=== PATIENT | female | born 1940 | race Caucasian/White ===

== ENCOUNTER → 2021-10-05 | Outpatient (CLI) | payer OTHER ==
[2021-10-05 11:04] LABS: HEMOGLOBIN 12.6 gm/dl (12.3-15.3); RED BLOOD COUNT 3.99 M/UL (4.00-5.10); WHITE BLOOD COUNT 11.5 K/UL (4.5-11.0)
[2021-10-06 07:10] LABS: CALCIUM, SERUM 9.8 mg/dL (8.7-10.3); CREATININE, SERUM 1.01 mg/dL (0.57-1.00); POTASSIUM, SERUM 4.8 mmol/L (3.5-5.2)
== END ==
LOC: LAB 10:01
PROVIDERS: Internal Medicine Cardiovascular Disease
DX: I25.10 Atherosclerotic heart disease of native coronary artery without angina pectoris (principal); R55 Syncope and collapse; I47.2 Ventricular tachycardia; R91.8 Other nonspecific abnormal finding of lung field
CPT/HCPCS: 36415; 71046; 80048; 85025

== ENCOUNTER → 2021-10-07 | Outpatient (CLI) | payer OTHER ==
[~2021-10-07] MED LIST: COZAAR50 MG PO; FISH OIL 1,0001 EACH PO; FOSINOPRIL SODI20 MG PO; HYDROCHLOROTHIA25 MG PO; ISOSORBIDE MON120 MG PO; LEVOTHYROXINE50 MC1 PO; LIPITOR40 MG PO; METFORMIN HCL500 MG PO; PLAVIX 75 MG TA75 MG PO; PROZAC20 MG PO; ST. JOSEPH ASPI81 M1 PO; TOPROL XL 25 MG25 MG PO; ZYPREXA2.5 MG PO
== END ==
LOC: CATH 06:55
DX: I47.2 Ventricular tachycardia (principal); R55 Syncope and collapse; I25.10 Atherosclerotic heart disease of native coronary artery without angina pectoris; Z98.61 Coronary angioplasty status
CPT/HCPCS: 93620; 99152; 99153; C1730; C1766; J1644; J2250; J3010; J7040